=== PATIENT | female | born 2000 | race Caucasian/White ===

== ENCOUNTER 2022-09-11 07:53 | Inpatient (IN) ==
[2022-09-11] MEDS ORDERED: LIDOCAINE 1% LOCAL 20 ML VIAL INFIL PRN (08:57)
[2022-09-11] MEDS ORDERED: OXYTOCIN 30 UNITS/500 ML BAG IV PRN ×3 (08:57→18:53)
[2022-09-11] MEDS ORDERED: PENICILLIN G POTASSIUM 6 MU in DEXTROSE 5% 250 ML IV ONE (09:30)
[2022-09-11] MEDS: LACTATED RINGER'S 1,000 ML IV PRN ×2 (09:37→13:42)
[2022-09-11 09:47] LABS: Hematocrit (blood only) 34.7 % (37.0-47.0); Hemoglobin 12.2 g/dl (12.0-16.0); Mean Corpuscular Hemoglobin 32.4 pg (25.0-34.0); Mean Corpuscular Hgb Conc 35.2 g/dL (32.0-36.0); Mean Platelet Volume 9.6 fL (9.4-12.4); Platelet Count 194 K/uL (130-400); RDW Coefficient of Variation 12.7 % (11.5-14.5); RDW Standard Deviation 41.9 fL (36.4-46.3); Red Blood Count 3.77 M/uL (4.20-5.40); White Blood Count 9.08 K/ul (4.8-10.8)
--- NOTE | 2022-09-11 10:45 | History & Physical Report ---
Date of Service September 11, 2022 Assessment & Plan (1) IUGR (intrauterine growth restriction) affecting care of mother: Plan: IUP at 39-4/7 weeks recently diagnosed with IUGR based on abdominal circumference. GBS positive We will begin Pitocin induction and GBS prophylaxis simultaneously. Epidural when requested. Anticipate vaginal delivery. Admission and Anticipated Discharge Date Admission Date: September 11, 2022 History of Present Illness Primary Care Provider: Juan Palacios Patient is a 22-year-old 1 P0 female EDC of 09/14/2022 who presents for induction of labor because of IUGR status. growth had been appropriate until 37 weeks. She was measuring size less than dates on fundal exam and a growth was obtained. Abdominal circumference was 3%. She had a prior growth scan at 30 weeks which showed an appropriate for gestational age fetus. testing has been reassuring. GBS is positive. Allergies Allergy/AdvReac Type Severity Reaction Status Date / Time No Known Allergies Allergy Verified 09/11/22 08:32 Home Medications Medication Instructions Recorded Confirmed Type prenat.vits,jojo,[id number] 1 tab PO DAILY 07/19/22 09/11/22 History Patient History Surgical History (Updated 09/11/22 @ 08:32 by Ting Win RN) Hx laparoscopic cholecystectomy Family History Mother Hypertension Grandmother (Maternal) Hypertension Diabetes Social History Smoking Status: Never smoker Tobacco Type: E-cigarettes / Vaping Cigarettes Per Day: vapes 1/4 pod a day; Do You Dip or Chew Tobacco: No; Hx Alcohol Use: No Hx Substance Use: No Preferred Language: Setswana Communication Ability: Effective Dietitian Helper Required: No Beliefs That Will Affect Care: None marital status: Single marital status details: Jonathan (31) [phone] Current Living Situation: Significant Other Current Living Situation Comment: [place] current occupational status: student current occupation: Grad School Other Information That Helps Us Care for You: No Feels Safe at Home: Yes Safety Concerns: Feels Safe At This Time Assistive Devices: None Review of Systems All systems reviewed & are unremarkable except as noted in HPI & below Physical Exam Constitutional: WD/WN, vitals as above Psychiatric: A+Ox3, euthymic affect Genitourinary: OB Exam Abdomen: + vertex and + estimated weight (5-6 pounds) Manual OB Exam: + cervical dilation 3 cm (3-4), + cervical effacement 80% and + station 0 (posterior) OB Exam Monitor Tracing: + external FHT monitor used, + external uterine monitor used, + category I and + normal FHT variability Results & Data Vital Signs (Past 12 Hours) Vital Signs Temp Pulse Resp BP 09/11/22 08:09 97.9 F 20 09/11/22 09:42 69 09/11/22 09:42 124/80 09/11/22 07:59 74 124/82 Coding Level of Care Code None Diagnoses IUGR (intrauterine growth restriction) affecting care of mother O36.5990
[2022-09-11] MEDS ORDERED: LIDOCAINE 2%/EPINEPHRINE 1:200,000 20 ML PF ONE (13:16)
[2022-09-11] MEDS ORDERED: BUPIVACAINE 0.25% PF 30 ML VIAL ONE (13:16)
[2022-09-11] MEDS ORDERED: fentaNYL citrate PF 100 MCG/2 ML VIAL ONE (13:16)
[2022-09-11] MEDS ORDERED: SODIUM CHLORIDE 0.9% PF INJ 10 ML VIAL ONE (13:16)
[2022-09-11] MEDS ORDERED: ePHEDrine sulfate 50 MG/ML AMP ONE (13:16)
[2022-09-11] MEDS ORDERED: fentaNYL 2MCG/ML ROPIVACAINE 1.25MG/ML 100 ML BAG EPI ONE (13:17)
[2022-09-11] MEDS: PENICILLIN G POTASSIUM 3 MU in DEXTROSE 5% 100 ML IV PRN ×2 (13:44→18:06)
[2022-09-11] MEDS ORDERED: NALOXONE HCL 0.4 MG/1 ML VIAL/CARP IV PRN (14:05)
[2022-09-11] MEDS ORDERED: LIDOCAINE 2%/EPINEPHRINE 1:200,000 20 ML PF EPI STA (14:05)
[2022-09-11] MEDS ORDERED: LIDOCAINE 2% MPF LOCAL 5 ML VIAL EPI PRN (14:05)
[2022-09-11] MEDS ORDERED: NALOXONE HCL 1 MG in SODIUM CHLORIDE 0.9% 1000ML 1,000 ML IV PRN (14:05)
[2022-09-11] MEDS ORDERED: SODIUM CHLORIDE 0.9% PF INJ 10 ML VIAL EPI STA (14:05)
[2022-09-11] MEDS ORDERED: fentaNYL citrate PF 100 MCG/2 ML VIAL EPI PRN (14:05)
[2022-09-11] MEDS ORDERED: ROPIVACAINE 0.5% PF 5 MG/ML 20 ML VIAL EPI PRN (14:05)
[2022-09-11] MEDS ORDERED: fentaNYL citrate PF 100 MCG/2 ML VIAL EPI STA (14:05)
[2022-09-11] MEDS ORDERED: NALBUPHINE HCL INJ 10 MG/ML AMP IV PRN (14:05)
[2022-09-11] MEDS ORDERED: SODIUM CHLORIDE 0.9% PF INJ 10 ML VIAL EPI PRN (14:05)
[2022-09-11] MEDS ORDERED: diphenhydrAMINE 50 MG/ML VIAL IV PRN (14:05)
[2022-09-11] MEDS ORDERED: BUPIVACAINE 0.25% PF 30 ML VIAL EPI PRN (14:05)
[2022-09-11] MEDS ORDERED: fentaNYL 2MCG/ML ROPIVACAINE 1.25MG/ML 100 ML BAG EPI PRN (14:05)
[2022-09-11] MEDS ORDERED: ePHEDrine sulfate 50 MG/ML AMP IV PRN (14:05)
[2022-09-11] MEDS ORDERED: BUPIVACAINE 0.25% PF 30 ML VIAL EPI STA (14:05)
--- NOTE | 2022-09-11 14:05 | Anesthesiology Consultation ---
Date of Service September 11, 2022 Assessment & Plan (1) Encounter for pre-operative examination: Chart Review Chart Review: Patient NOT seen in Pre Admission Testing and Acceptable Risk for Labor Epidural Consults Requested none History Height/Weight Height: 5 ft 6 in Weight: 75.75 kg Allergies Allergy/AdvReac Type Severity Reaction Status Date / Time No Known Allergies Allergy Verified 09/11/22 08:32 Medications Home Medications Medication Instructions Recorded Confirmed Last Taken prenat.vits,jojo,[id number] 1 tab PO DAILY 07/19/22 09/11/22 09/11/22 06:00 Active Medications Generic Name Dose Route Start Last Admin Trade Name Freq PRN Reason Stop Dose Admin Lactated Ringer's 1,000 mls @ 125 mls/hr 09/11/22 08:57 09/11/22 13:42 Lr IV 09/13/22 08:56 125 mls/hr .Q8H PRN Administration L&D Protocol Protocol Oxytocin 30 units in 500 mls @ 13 mls/hr 09/11/22 08:57 09/11/22 13:00 Pitocin IV 09/13/22 08:56 0.78 units/hr .Q24H PRN 13 mls/hr Labor Induction/Augmentation Titration Protocol 0.78 UNITS/HR Penicillin G Potassium 3 mu/ 106 mls @ 100 mls/hr 09/11/22 12:14 09/11/22 13:44 Dextrose IV 09/21/22 12:13 100 mls/hr Q4H PRN Administration GBS(+) Until Delivery Past Family History Family History Mother Hypertension Grandmother (Maternal) Hypertension Diabetes Past Surgical History Surgical History Hx laparoscopic cholecystectomy Social History Smoking Status: Never smoker tobacco type: e-cigarettes Smoking cigarettes per day: vapes 1/4 pod a day Do You Dip or Chew Tobacco: No Hx Alcohol Use: No Hx Substance Use: No Physical Exam Vital Signs Last Vital Signs Temp 98.4 F 09/11/22 11:40 Pulse 60 09/11/22 13:58 Resp 20 09/11/22 11:40 BP 133/82 09/11/22 13:47 Pulse Ox 99 09/11/22 13:58 Testing Laboratory Results 09/11/22 09:25
[2022-09-11] MEDS ORDERED: ACETAMINOPHEN 325 MG TAB PO PRN (18:53)
[2022-09-11] MEDS ORDERED: HYDROCORTISONE ACETATE 25 MG SUPP PR PRN (18:53)
[2022-09-11] MEDS ORDERED: DIPHTHERIA/TETANUS/PERTUSSIS Vaccine (Tdap, Age 7+yrs) 0.5mL SYR/VL IM ONE (18:53)
[2022-09-11] MEDS ORDERED: oxyCODONE/ACETAMINOPHEN 5mg/325mg TAB PO PRN (18:53)
--- NOTE | 2022-09-11 19:08 | Anesthesia Procedure Note ---
Date of Service September 11, 2022 Anesthesia Post Epidural Note Vital Signs Vital Signs: Temp Pulse Resp BP Pulse Ox 98.8 F 63 20 124/63 93 09/11/22 16:00 09/11/22 19:03 09/11/22 17:31 09/11/22 19:03 09/11/22 18:32 Notes Mental Status: alert / awake / arousable and participated in evaluation Nausea / Vomiting: adequately controlled Pain: adequately controlled Airway Patency, RR, SpO2: stable & adequate BP & HR: stable & adequate Hydration State: stable & adequate Neuraxial Anesthesia: was administered and sensory block is resolving Anesthetic Complications: no major complications apparent and Pt Satisfied with anesthetic care Epidural: Removed without complications and With tip intact
[2022-09-11] MEDS: BENZOCAINE 20% AER SPR 82.5 GM CAN EXT PRN (21:00)
--- NOTE | 2022-09-11 21:11 | Delivery Summary ---
Vaginal Delivery Summary Date of Service September 11, 2022 Vaginal Delivery Summary and 1st Degree LAC Patient is a 22-year-old 1 P0 female EDC of 09/14/2022 who presents at 39- 4/7 weeks for induction because of late onset of IUGR. Pitocin induction was begun per protocol. She received effective epidural analgesia. Membranes were ruptured for a very small amount of blood-tinged fluid. She progressed to full dilation and pushed effectively over intact perineum for delivery of a viable male infant. After the head was delivered the rest the infant delivered easily and was placed on the mother's abdomen for further attention and drying. The cord was short and was clamped and cut prior to 1 minute. After cord blood was obtained, the placenta was expressed intact with a three-vessel cord. A first- degree left labial laceration was repaired with 3-0 chromic in the usual fashion. bleeding was controlled with dilute Pitocin and fundal massage. Estimated blood loss is 200 cc. Mother and were doing well after delivery. MNP Vaginal Delivery Charge Delivery Type Details: and 1st Degree LAC
[2022-09-11] MEDS: DOCUSATE SODIUM 100 MG CAP PO SCH (21:49)
[2022-09-11] MEDS: IBUPROFEN 600 MG TAB PO PRN (21:49)
--- NOTE | 2022-09-12 06:59 | Obstetrical Progress Note ---
Date of Service <Andrew Whitehead DO - Last Filed: 09/12/22 07:38> September 12, 2022 Assessment & Plan <Andrew Whitehead DO - Last Filed: 09/12/22 07:38> (1) state: - Feels well today. Eating well, voiding well, ambulating well. - Pain well controlled with ibuprofen 600mg Q4H PRN - Routine care -- OOB, ambulation, diet progression as tolerated - After discharge will have 6 week follow-up with Dr. Mayes. Day #:: 1 <Ella Arshad MD, FACOG - Last Filed: 09/12/22 08:12> (1) state: Subjective <Andrew Whitehead DO - Last Filed: 09/12/22 07:38> Ambulation: ambulating normally Voiding: no voiding problems Passing Gas:: Yes Diet Tolerance:: regular diet Lochia:: Small Feeding Type:: bottle feeding Current Pain Level(1-10): 3 Review of Systems Denies fever, chills, sweats Denies shortness of breath, difficulty breathing, chest pain, palpitations, chest pressure. Denies breast pain. Denies dysuria. Denies headache or changes in vision. Physical Exam <Andrew Whitehead DO - Last Filed: 09/12/22 07:38> General: Alert, oriented. No acute distress. Cardiac: Regular rate and rhythm, no murmurs/rubs/gallops. Respiratory: Clear to auscultation bilaterally a/p, no wheezes/rales/rhonchi. No increased work of breathing. Symmetrical chest rise. No respiratory distress. Abdomen: Soft, nontender, nondistended. Bowel sounds present. Uterus: Uterine fundus firm, palpable 1 cm below umbilicus. Lower Extremities: No lower extremity edema or swelling. No deep calf pain. Margret's negative bilaterally. Results & Data <Andrew Whitehead DO - Last Filed: 09/12/22 07:38> Vital Signs (Past 12 Hours) Vital Signs Temp Pulse Pulse Resp BP BP Pulse Ox 09/12/22 04:00 36.5 C 67 16 118/72 98 09/11/22 23:40 36.3 C L 65 16 120/74 97 09/11/22 21:15 36.8 C 77 16 122/80 98 09/11/22 20:54 93 H 09/11/22 20:54 120/78 09/11/22 20:48 77 09/11/22 20:48 119/79 09/11/22 20:35 70 09/11/22 20:35 108/69 09/11/22 20:22 66 09/11/22 20:22 119/70 09/11/22 20:18 67 09/11/22 20:18 146/88 H 09/11/22 20:03 67 09/11/22 20:03 144/73 H 09/11/22 19:51 61 09/11/22 19:51 123/71 09/11/22 19:38 60 09/11/22 19:38 120/57 L 09/11/22 19:23 67 09/11/22 19:23 117/75 09/11/22 19:03 63 09/11/22 19:03 124/63 O2 Del Method 09/12/22 04:00 Room Air 09/11/22 23:40 Room Air 09/11/22 21:15 Room Air 09/11/22 20:54 09/11/22 20:54 09/11/22 20:48 09/11/22 20:48 09/11/22 20:35 09/11/22 20:35 09/11/22 20:22 09/11/22 20:22 09/11/22 20:18 09/11/22 20:18 09/11/22 20:03 09/11/22 20:03 09/11/22 19:51 09/11/22 19:51 09/11/22 19:38 09/11/22 19:38 09/11/22 19:23 09/11/22 19:23 09/11/22 19:03 09/11/22 19:03 <Ella Arshad MD, FACOG - Last Filed: 09/12/22 08:12> Co-Signing Physician Notes Resident Physician Supervision Note: I interviewed and examined the patient. Discussed with Dr. Whitehead and agree with findings and plan as documented in the note. Any exceptions or clarifications are listed here: [None] Documented By: Ella Arshad MD, FACOG Resident Activity Tracking <Andrew Whitehead DO - Last Filed: 09/12/22 07:38> Resident Involvement: Resident Care Provided Care Provided: OB Delivery
[2022-09-12 07:33] LABS: Hematocrit (blood only) 27.5 % (37.0-47.0); Hemoglobin 9.9 g/dl (12.0-16.0); Mean Corpuscular Hemoglobin 32.2 pg (25.0-34.0); Mean Corpuscular Volume 89.6 fL (80.0-100.0); Mean Platelet Volume 9.6 fL (9.4-12.4); Platelet Count 150 K/uL (130-400); RDW Coefficient of Variation 12.8 % (11.5-14.5); RDW Standard Deviation 41.1 fL (36.4-46.3); Red Blood Count 3.07 M/uL (4.20-5.40)
[2022-09-12] MEDS: PRENATAL VITAMIN 1 TAB PO SCH (08:25)
[2022-09-12] MEDS: IBUPROFEN 600 MG TAB PO PRN ×3 (08:25→20:20)
[2022-09-12] MEDS: DOCUSATE SODIUM 100 MG CAP PO SCH ×2 (08:25→20:20)
[2022-09-12] MEDS ORDERED: bisacodyL 5 MG TABEC PO SCH (20:00)
[2022-09-12] MEDS: BENZOCAINE 20% AER SPR 82.5 GM CAN EXT PRN (20:20)
[2022-09-13 06:33] LABS: Hematocrit (blood only) 28.3 % (37.0-47.0); Hemoglobin 10.1 g/dl (12.0-16.0)
--- NOTE | 2022-09-13 06:33 | Obstetrical Progress Note ---
Date of Service <Andrew Whitehead DO - Last Filed: 09/13/22 06:33> September 13, 2022 Assessment & Plan <Andrew Whitehead DO - Last Filed: 09/13/22 06:33> (1) state: - Feels well today. Eating well, voiding well, ambulating well. - Pain well controlled with ibuprofen 600mg Q4H PRN - Routine care -- OOB, ambulation, diet progression as tolerated - After discharge will have 6 week follow-up with Dr. Mayes. - Will DC today. Day #:: 2 <Blessing Mendoza MD, FACOG - Last Filed: 09/13/22 06:49> (1) state: Subjective <Andrew Whitehead DO - Last Filed: 09/13/22 06:33> Ambulation: ambulating normally Voiding: no voiding problems Passing Gas:: Yes Diet Tolerance:: regular diet Feeding Type:: bottle feeding Current Pain Level(1-10): 1 Review of Systems Denies fever, chills, sweats Denies shortness of breath, difficulty breathing, chest pain, palpitations, chest pressure. Denies breast pain. Denies dysuria. Denies headache or changes in vision. Physical Exam <Andrew Whitehead DO - Last Filed: 09/13/22 06:33> General: Alert, oriented. No acute distress. Cardiac: Regular rate and rhythm, no murmurs/rubs/gallops. Respiratory: Clear to auscultation bilaterally a/p, no wheezes/rales/rhonchi. No increased work of breathing. Symmetrical chest rise. No respiratory distress. Abdomen: Soft, nontender, nondistended. Bowel sounds present. Uterus: Uterine fundus firm, palpable 2 cm below umbilicus. Lower Extremities: No lower extremity edema or swelling. No deep calf pain. Margret's negative bilaterally. Results & Data <Andrew Whitehead DO - Last Filed: 09/13/22 06:33> Vital Signs (Past 12 Hours) Vital Signs Temp Pulse Pulse Resp BP BP Pulse Ox 09/13/22 00:30 36.7 C 68 20 120/80 99 09/13/22 01:04 36.7 C 68 20 120/80 99 09/12/22 20:20 36.6 C 73 16 123/81 O2 Del Method 09/13/22 00:30 Room Air 09/13/22 01:04 09/12/22 20:20 Room Air <Blessing Mendoza MD, FACOG - Last Filed: 09/13/22 06:49> Co-Signing Physician Notes Resident Physician Supervision Note: I was present with Dr. Whitehead during the history and exam. I discussed the case with the resident and agree with the findings and plan as documented in the note. Any exceptions or clarifications are listed here: doing well. no complaints. eating, voiding, ambulating. bottle feeding. abd soft ff 2 down nt. ext nt calves. ppd#2, dc home. f/u 6wk pp. instructions reviewed. bottle feeding, rh neg, did get rhogam. ri. Documented By: Blessing Mendoza MD, FACOG Resident Activity Tracking <Andrew Whitehead DO - Last Filed: 09/13/22 06:33> Resident Involvement: Resident Care Provided Care Provided: OB Delivery
[2022-09-13] MEDS: DOCUSATE SODIUM 100 MG CAP PO SCH (07:50)
[2022-09-13] MEDS: IBUPROFEN 600 MG TAB PO PRN (07:50)
[2022-09-13] MEDS: PRENATAL VITAMIN 1 TAB PO SCH (07:50)
[2022-09-13] MEDS ORDERED: bisacodyL 10 MG SUPP PR PRN (08:00)
== END 2022-09-13 11:30 | disposition home or self-care (01) | DRG 807 ==
LOC: 4S1 07:53 → 4E2 21:30